=== PATIENT | female | born 1985 | race Caucasian/White ===

== ENCOUNTER → 2018-05-29 | Outpatient (CLI) | payer OTHER ==
[~2018-05-29] MED LIST: PREN-127 PO
[2018-05-29 15:35] LABS: PLATELET COUNT, AUTOMATED 214 K/uL (150-450)
== END ==
LOC: LAB 08:16
PROVIDERS: ATTEND Obstetrics & Gynecology
DX: Z34.91 Encounter for supervision of normal pregnancy, unspecified, first trimester (principal)
CPT/HCPCS: 36415; 81001; 85025; 86592; 86703; 86762; 86850; 86900; 86901; 87088; 87340

== ENCOUNTER → 2018-08-14 | Outpatient (CLI) | payer OTHER ==
[~2018-08-14] MED LIST changes: +FLU60VIA41 IM
--- NOTE | 2018-08-14 15:01 | RADIOLOGY IMAGING REPORT ---
FACILITY: [facility] [place] PATIENT NAME: Mahnaz Lassiter : 1985 MR: [id number] V: [id number] EXAM DATE: [id number] ORDERING PHYSICIAN: CHEY CORDERO TECHNOLOGIST: Location: [facility] [place] Patient: Mahnaz Lassiter : 1985 Visit/Account:[id number] Date of Sevice: 08/14/2018 [facility] OB ANATOMICAL SURVEY HISTORY: Anatomic survey COMPARISON: None. TECHNIQUE: Transabdominal imaging was performed for assessment of the fetus and maternal pelvic s tructures. Transvaginal imaging was not performed. FINDINGS: Intrauterine gestations: One. presentation: Variable. At the end of the examination the fetus was in breech presentation. heart rate: 146 bpm. Amniotic fluid volume: Normal; NILDA 17.98 cm; MVP 5.27 cm. Placenta: Anterior. Uterus: Gravid, otherwise grossly unremarkable where visualized. Maternal adnexa/ovaries: Grossly unremarkable, ovaries not visualized. Cervix: Grossly long and closed. Gestational Parameters: BPD: 4.51 cm, 82nd percentile HC: 16.63 cm, 66th percentile AC: 14.61 cm, 79th percentile FL: 2.81 cm, 34th percentile Average ultrasound age (AUA): 19 weeks/ four days Estimated age based on LMP: 18 weeks/ six days Estimated weight (EFW): 286 grams +/- 42 grams, 73rd percentile Anatomic Survey: Intracranial structures, 4-chamber heart, stomach, kidneys, urinary bladder, spine, 3-vessel cord and cord insertion are unremarkable. Two upper and two lower extremities visualized. IMPRESSION: Single viable fetus in viable presentation with an estimated gestational age by measurements of 19 we eks and four days. Estimated weight is 286 g Report Dictated By: Marcelle Bruce MD at 08/14/2018 2:53 PM Report E-Signed By: Marcelle Bruce MD at 08/14/2018 2:56 PM WSN:[email or web address]
== END ==
LOC: US 11:35
PROVIDERS: ATTEND Obstetrics & Gynecology
DX: Z34.92 Encounter for supervision of normal pregnancy, unspecified, second trimester (principal); Z3A.19 19 weeks gestation of pregnancy

== ENCOUNTER → 2018-10-16 | Outpatient (CLI) | payer OTHER ==
[~2018-10-16] MED LIST changes: +DIPH0.5D12 IM
[2018-10-16 12:05] LABS: PLATELET COUNT, AUTOMATED 178 K/uL (150-450)
== END ==
LOC: LAB 08:29
PROVIDERS: ATTEND Advanced Practice Midwife
DX: Z34.90 Encounter for supervision of normal pregnancy, unspecified, unspecified trimester (principal)
CPT/HCPCS: 36415; 82950; 85025

== ENCOUNTER → 2018-10-17 | Outpatient (CLI) | payer OTHER | LOC: LAB 07:23 | PROVIDERS: ATTEND Advanced Practice Midwife | DX: O99.810 Abnormal glucose complicating pregnancy (principal) | CPT/HCPCS: 36415; 82951; 82952 ==

== ENCOUNTER → 2018-12-11 | Outpatient (CLI) | payer OTHER ==
[~2018-12-11] MED LIST changes: +SERT-184 PO; +SERT25TA90 PO
== END ==
LOC: LAB 09:42
PROVIDERS: ATTEND Advanced Practice Midwife
DX: Z36.85 Encounter for antenatal screening for Streptococcus B (principal)
CPT/HCPCS: 87081

== ENCOUNTER 2018-12-25 12:48 | Inpatient (IN) | payer OTHER ==
[~2018-12-25] VITALS: Ht 165.1 cm; Wt 74.4 kg
[~2018-12-25 12:48] MED LIST changes: -DIPH0.5D12 IM; +DIPH0.5S2 IM
[2018-12-25 12:50] VITALS: BP 122/99; Ht 165.1 cm; Wt 74.4 kg
[2018-12-25] MEDS ORDERED: FAMOTIDINE(*) 20MG/50ML PREMIX 50 ML IVPB PRN (12:55)
[2018-12-25] MEDS ORDERED: FLUSH 10 ML SYR IVP PRN (12:55)
[2018-12-25] MEDS ORDERED: LIDOCAINE/SOD BICARB 8.4% SYR SC PRN (12:55)
[2018-12-25] MEDS ORDERED: fentaNYL CITR 100 MCG/2 ML AMP IVP PRN (12:55)
[2018-12-25] MEDS ORDERED: LIDOCAINE 1% LOCAL 300 MG/30ML INJ PRN (12:55)
[2018-12-25] MEDS ORDERED: LR(*) 1000 ML BAG 1,000 ML IV SCH (12:55)
[2018-12-25] MEDS ORDERED: METOCLOPRAMIDE 10 MG/2 ML SDV IVP PRN (12:55)
[2018-12-25] MEDS ORDERED: OXYTOCIN 30 UNIT/D5LR 500 ML 500 ML IV PRN (12:55)
[2018-12-25 13:30] LABS: PLATELET COUNT, AUTOMATED 165 K/uL (150-450)
--- NOTE | 2018-12-25 13:49 | History & Physical ---
History of Present Illness Age of Patient: 33 : 2 Para or TPAL: 1 EDC per LMP: Jan 09, 2019 Estimated Gestational Age: 37.6 Chief Complaint AR is a 33 y.o. at 37w6d wks with an Estimated Date of Delivery: 01/09/19 dated by LMP and first trimester US who presents to L&D with cramping contractions. She was seen in clinic this am and already with BBOW. Gentle membrane sweep was performed and she was told to come back to L&D if contractions began and/pr her membranes ruptured as she is GBS +. She reports onset of contractions shortly after getting home about 3 minutes apart. Reports they feel more like cramps but she wanted to get here for GBS treatment. +FM, no LOF or VB. History Patient's Blood Type: B Positive Rubella Status: Immune Group B Strep Screen: Positive Allergies: Coded Allergies: No Known Drug Allergies (Unverified , 02/28/18) Social History: no ETOH, tobacco, or illicit drug use Family History: FH: ALS (amyotrophic lateral sclerosis) MAT. GM FH: HTN (hypertension) FATHER, Age:65 FH: bipolar disorder BROTHER OR SISTER FH: diabetes mellitus PAT. GM FH: stroke MAT. FH: thyroid condition BROTHER OR SISTER Squamous cell carcinoma MOTHER, Age:63 Med Rec Home Meds Active Scripts Sertraline Hcl (SERTRALINE HCL) 50 Mg Tablet, 1 TAB PO QDAY for Anxiety, #30 TAB 3 Refills Prov:APOLONIA BENTLEY [facility] 11/20/18 Sertraline Hcl (SERTRALINE HCL) 25 Mg Tablet, 1 TAB PO QDAY for Anxiety for 7 Days, #7 TAB 0 Refills Take 25mg once a day for 7 days and then increase to 50mg everyday Prov:APOLONIA BENTLEY [facility] 11/20/18 Reported Medications Vits W-Ca,Fe,Fa(<1MG) ( VITAMINS) 1 Each Tablet, 1 EACH PO DAILY, TAB 05/29/18 Review of Systems Constitutional: No Fever Eyes: No Vision Change Cardiovascular: No Chest Pain Respiratory: No Shortness of Breath Gastrointestinal: No Nausea, No Vomiting, No Diarrhea Musculoskeletal: Pain (mild uterine cramping) Psychiatric: Anxiety (taking zoloft and stable) Exam General Exam Vital Signs Vital Signs Date Time Temp Pulse Resp B/P (MAP) Pulse Ox O2 Delivery O2 Flow Rate FiO2 12/25/18 12:50 99.0 76 18 122/99 (107) Room Air General Apperance: Alert/Awake/No Acute Distress Neuro: No Gross deficits Eyes: Normal Extraocular Movement & Vison ENT: Normal Cardiovascular: Regular Rate and Rhythm Respiratory: No Respiratory Distress Abdomen: Gravid - Non-Tender, RUQ Non-Tender : Normal Integumentary: Skin Intact without Lesions or Rash Psychological: Alert & Oriented X3, Appropriate Mood & Affect Vaginal Discharge/Fluid?: Bloody Show, Other (BBOW) Cervical Dialation: 5 (in clinic this am) Cervical Effacement (%): 70 Cervical Consistency: Soft Cervical Position: Posterior Station: -1 Presentation: Vertex Uterine Contractions(Q min): 3 UC Resting Tone: Soft Fetus Feeling Movement?: Yes Estimated Weight(grams): 3200 Heart Tones: 145 Heart Tone Variabilty: Moderate FHT Accelerations: 15X15 FHT Decelerations: None FHT Category: I Medical Decision Making Data Points Result Diagram: 12/25/18 1320 Assessment and Plan 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 at 37w6d wks with an Estimated Date of Delivery: 01/09/19 dated by LMP and first trimester US who presents to L&D with cramping contractions. She was seen in clinic this am and already /1 with BBOW. Gentle membrane sweep was performed and she was told to come back to L&D if contractions began and/pr her membranes ruptured as she is GBS +. Labor state: Early active labor, deferred cervical check on admit as she was just examined in clinic, Admit to L& D, start IV and draw labs, Start PCN BEATRIS and hopefully get second dose in in four hours. Explained POC with pt and as I will wait to recheck cervix until first dose of PCN is in. Encouraged upright positions and ambulating as well as hydrating. Will expectantly manage at this time as pt is GBS+ and plans for an unmedicated . well-being: Category I FHT: intermittent monitoring for low risk Maternal well-being: Normotensive, slightly afebrile at 99.0, will closely monitor, membranes intact with a BBOW at cervix PNL: GBS positive, Type/Rh B+, rubella immune Pain Management: Plans for unmedicated , will plan to utilize the tub for pain relief when needed Feed: Breast c/b: * GBS + * Anxiety: Started on Zoloft with good effect * Hx of GHTN in first Anticipate , re-evaluate in 2-3 hours or prn APOLONIA BENTLEY CNM Dec 25, 2018 13:49
[2018-12-25] MEDS ORDERED: PENICILLIN G 5 MILLUN VIAL 5 MIU in NS(*) 0.9% 100 ML MINI-BAG 100 ML IVPB ONE (14:00)
--- NOTE | 2018-12-25 17:51 | Labor Progress Note ---
Labor Subjective Progress Notes Subjective Pt reports feeling her contraction more intensely after AROM. She denies LOPEZ, vision changes, or RUQ pain. She reports good movement. at bedside and very supportive. Feeling Movement?: Yes Vaginal Discharge/Fluid: Bloody Show, Clear Fluid, Mucous, Moderate Amount Labor Pain: Moderate Neurological: No Headache Eyes: No Visual Disturbances Labor Objective Vital Signs Vital Signs Date Time Temp Pulse Resp B/P (MAP) Pulse Ox O2 Delivery O2 Flow Rate FiO2 12/25/18 12:50 99.0 76 18 122/99 (107) Room Air Vaginal Discharge/Fluid?: Bloody Show, Clear Fluid, Mucous, Moderate Amount Cervical Dialation: 6 Cervical Effacement (%): 80 Cervical Consistency: Soft Cervical Position: Mid Station: -1 Presentation: Vertex Uterine Contractions(Q min): 4 Uterine Contraction Strength: Moderate UC Resting Tone: Soft Fetus Estimated Weight(grams): 3200 Heart Tones: 145 Heart Tone Variabilty: Moderate FHT Accelerations: Present, 10X10 FHT Decelerations: None FHT Category: I General Exam General Appearance: Alert/Awake/No Acute Distress ENT: Normal Neck: No Masses Cardiovascular: Normal Rhythm & Peripheral Pulses Respiratory: No Respiratory Distress, Clear to Auscultation Abdomen: Soft, Non-Tender, Non-Distended Musculoskeletal: No Weakness/Pain Extremities: No Cyanosis,Clubbing or Edema Integumentary: Skin Intact without Lesions or Rash Psychological: Alert & Oriented X3, Appropriate Mood & Affect Other Result Diagram: 12/25/18 1320 Assessment and Plan Problems: (1) Uterine contractions Onset Date: ~ 12/25/2018 Status: Acute Assessment & Plan: SHANIA is a 33 y.o. at 37w6d wks with an Estimated Date of Delivery: 01/09/19 dated by LMP and first trimester US who presents to L&D with cramping contractions. She was seen in clinic this am and already with BBOW. Gentle membrane sweep was performed and she was told to come back to L&D if contractions began and/or her membranes ruptured as she is GBS +. Labor state: Active labor, received 2 doses of PCN so adequately treated for GBS. Small progress since 1330 with cervical dilation so informed pt of choices to progress labor. Reviewed R/B/A of AROM and expectant management to pt and . Pt desires AROM. Encourage upright positions to facilitate descent. well-being: Category I FHT: intermittent monitoring for low risk Maternal well-being: Normotensive, but closely monitor for mild range BP, will plan to send P:R if becoming mild range, afebrile AROM @ 17:14 for moderate amount of clear blood tinged fluid with mucus PNL: GBS positive, Type/Rh B+, rubella immune Pain Management: Plans for unmedicated , will plan to utilize the tub for pain relief when needed Feed: Breast c/b: * GBS +: adequate treatment in labor * Anxiety: Started on Zoloft with good effect * Hx of GHTN with first Anticipate , re-evaluate in 2-3 hours or prn APOLONIA BENTLEY CNM Dec 25, 2018 17:51
[2018-12-25] MEDS ORDERED: PENICILLIN G 2.5 MILLUN/100 ML 100 ML IVPB SCH (18:00)
[2018-12-25] MEDS ORDERED: ONDANSETRON 4 MG/2 ML VIAL IVP PRN (18:30)
--- NOTE | 2018-12-25 20:00 | OB Delivery Note ---
Delivery Note Vaginal Delivery Type: Spont. Vaginal Delivery Delivery Date: Dec 25, 2018 Delivery Time: 19:06 Estimated Gestational Age(wks): 37.6 Delivery Anesthesia: Other (none) Sex: Male Apgars: 1 Minute, 5 Minute Repair Needed: Laceration, Perineal, 2nd Degree Estimated Blood Loss: 300 Delivery Complications: Laceration Notes: AR is a 33 year old G2 now P2 at @ 37 6/7 by LMP and first trimester US with an ARNEL of 01/09/19 with OOC on 12/25/18 at 1248 after a morning clinic visit when she was found to be 5//70/-2. Pt was admitted to the family care unit on 12/25/18 @ 12:48 in early labor for GBS treatment before labor. Cervical exam at clinic at 0930 am was 5/70/-2 and was not rechecked at admit as to provide time for adequate GBS treatment. She had AROM on 12/25/18 at 1714 for moderate clear blood tinged fluid. Pt was GBS positive and received adequate treatment. FHR was CAT I primarily throughout first stage. Pt utilized controlled breathing and hydrotherapy primarily for pain management. Pt was completely dilated on 12/25/18 at 1900 and pt began spontaneously pushing at that time. At 1906 pt had a NSVB of live male APGARS 8/9 weighing 7lbs 12oz. The head delivered spontaneously in the OA position and restituted STEVEN with no nuchal cord. The anterior shoulder was delivered a traumatically and the posterior shoulder followed. Body delivered easily. Face was wiped and then placed on the maternal abdomen. The was dried and stimulated and noted to have a spontaneous cry and spontaneous movement of all 4 extremities. Cord was clamped X 2 by CNM after 3 minutes and cut by patient's spouse. Mother was in SF position. At 1913 the placenta and membranes delivered spontaneous and intact with a 3 vessel cord after gentle downward traction and maternal push. 30 units of Pitocin was placed in 500cc IV to firm the uterus and started immediately after placenta delivery. Upon inspection of the perineum a second degree midline laceration was noted and repaired using a 3.0 Vicryl under 1% lidocaine. Patient tolerated the procedure well. Hemostasis observed.A right periurethral abrasion was also noted to be hemostatic and no repair was necessary. EBL 300 with fundus firm with minimal bleeding. Mom and baby were left in stable condition. imitated. "I personally examined the patient and there are no unintended foreign objects in the vagina, as well as all laps, sponges and needle counts were correct." Gabriela Allen CNM was present throughout the entire delivery with Dr. Jin Golden as back up OB. Athlete Marketing Agent in Attendence: GABRIELA Rodriguez CNM Dec 25, 2018 20:00
[2018-12-25] MEDS ORDERED: MAGNESIUM HYDROXIDE* 30ML UDCP PO PRN (20:05)
[2018-12-25] MEDS ORDERED: LANOLIN OINT 7 GM TUBE TP PRN (20:05)
[2018-12-25] MEDS ORDERED: HYDROCORTISONE 2.5% CR 30GM TB PR PRN (20:05)
[2018-12-25] MEDS ORDERED: APAP/HYDROCODONE 325/5 TAB PO PRN (20:05)
[2018-12-25] MEDS ORDERED: GLYCERIN/WITCH HAZEL LEAF 1 PK TP PRN (20:05)
[2018-12-25] MEDS ORDERED: BENZOCAINE 20% 60 ML BTL TP PRN (20:05)
[2018-12-25] MEDS: DOCUSATE CALCIUM 240 MG CAP PO SCH (21:00)
[2018-12-25] MEDS ORDERED: LIDOCAINE 1% LOCAL 300 MG/30ML 30 ML ONE (21:52)
[2018-12-25 23:05] VITALS: BP 106/57
[2018-12-26] MEDS ORDERED: IBUPROFEN 800 MG TAB PO SCH (01:00)
[2018-12-26 02:31] VITALS: BP 107/61
[2018-12-26] MEDS: IBUPROFEN 800 MG TAB PO SCH ×3 (04:07→20:19)
[2018-12-26 07:05] VITALS: BP 114/63
[2018-12-26] MEDS: DOCUSATE CALCIUM 240 MG CAP PO SCH ×2 (09:00→20:19)
[2018-12-26] MEDS ORDERED: PENICILLIN G 2.5 MILLUN/100 ML 100 ML IVPB SCH (10:00)
--- NOTE | 2018-12-26 11:57 | OB/GYN Progress Note ---
OB Subjective Progress Notes Subjective Pt is PP day #1 s/p an uncomplicated last evening of a male infant. She sustained a second degree midline perineal laceration that was repaired. Today she has no physical complaints other than some tail bone pain, which she reports she also had from her last . She is tolerating with motrin. She is voiding well without pain. has not been going that well, so she is going to work with a LC to help get a good latch. Baby has been very sleepy today. She got very little sleep last night, but will try and get some naps in. GI: POS Flatus; NEG Nausea, NEG Vomiting, NEG Bowel Movement : Voiding Well, Vaginal Bleeding, Scant Pain: Mild (tail bone, but no perineal pain. Very mild cramping tolerating with mortin), Tolerating PO Pain Meds Neurological: No Headache Eyes: No Visual Disturbances OB Objective Physical Exam Vital Signs Date Time Temp Pulse Resp B/P (MAP) Pulse Ox O2 Delivery O2 Flow Rate FiO2 12/26/18 07:05 97.2 53 16 114/63 (80) 12/26/18 02:31 92 12/25/18 12:50 Room Air Intake and Output 12/26/18 07:00 Intake Total 1200 ml Output Total 520 ml Balance 680 ml Intake IV Total 1200 ml Output Urine Total 470 ml Other 50 ml # Voids 2 General Appearance: Alert/Awake/No Acute Distress Neurological: No Gross deficits Eyes: Normal Extraocular Movement & Vison ENT: Normal Neck: No Masses Cardiovascular: Normal Rhythm & Peripheral Pulses Respiratory: No Respiratory Distress, Clear to Auscultation Abdomen: Soft, Non-Tender, Non-Distended, Bowel Sounds Present, Fundus Firm Incision: Other (laceration well approximated and healing well.) : Normal Musculoskeletal: No Weakness/Pain Extremities: No Cyanosis,Clubbing or Edema Integumentary: Skin Intact without Lesions or Rash Psychological: Alert & Oriented X3, Appropriate Mood & Affect Result Diagram: 12/26/18 0653 Assessment and Plan Problems: (1) Uterine contractions Onset Date: ~ 12/25/2018 Status: Resolved (2) (normal spontaneous vaginal delivery) Status: Resolved (3) Second degree laceration of perineum, delivered, current hospitalization Status: Acute Assessment & Plan: Healing well with good approximation: Encouraged use of karen bottle when urinating and dermaplast PRN. Sitx bathes PRN. Reviewed s/s of infection and healing timeframe. (4) care and examination Onset Date: ~ 12/25/2018 Status: Acute Assessment & Plan: PP day #1: Normotensive and afebrile. Pt is having difficulty with and because 24 hour disha is so late, will plan to stay until tomorrow for LC help. Baby is doing well, just very sleepy. Has concerns overnight as baby was tremoring. Pt is on Zoloft 50mg, but also LGA baby for GA. BS was borderline and they will continue to monitor. Plan for baby and mother to be dc'd tomorrow after circumcision. APOLONIA BENTLEY CNM Dec 26, 2018 11:57
[2018-12-26 12:00] VITALS: BP 119/74
[2018-12-26] MEDS: SERTRALINE HCL 50 MG TAB PO SCH (12:00)
[2018-12-26 16:21] VITALS: BP 119/73
[2018-12-26 20:18] VITALS: BP 126/81
[2018-12-26 23:59] VITALS: BP_SYST 128; BP_SYST 141; BP_DIAS 77; BP_DIAS 79
[2018-12-27 03:48] VITALS: BP 123/78
[2018-12-27] MEDS: IBUPROFEN 800 MG TAB PO SCH (03:48)
[2018-12-27 07:20] VITALS: BP 118/78
[2018-12-27] MEDS: DOCUSATE CALCIUM 240 MG CAP PO SCH (08:46)
[2018-12-27] MEDS: SERTRALINE HCL 50 MG TAB PO SCH (08:46)
--- NOTE | 2018-12-27 08:47 | NUR ---
pt refused zoloft, preferring to take own from home
--- NOTE | 2018-12-27 09:11 | OB/GYN Discharge Summary ---
Discharge Summary Reason for Hosp/Final Diag: (1) Uterine contractions Onset Date: ~ 12/25/2018 Status: Resolved (2) (normal spontaneous vaginal delivery) Status: Resolved (3) Second degree laceration of perineum, delivered, current hospitalization Status: Acute Hospital Course & Plan: Healing well with good approximation: Encouraged use of karen bottle when urinating and dermaplast PRN. Sitx bathes PRN. Reviewed s/s of infection and healing timeframe. (4) care and examination Onset Date: ~ 12/25/2018 Status: Acute Hospital Course & Plan: Admission Diagnoses: IUP at 37w6d, Labor state early active labor Reason for Hospitalization: Labor and of male infant Procedures Performed: second degree perineal laceration repair Delivery Type: uncomplicated Hospital Course: Pt was admitted to the family care unit on 12/25/18 @ 12:48 in early labor for GBS treatment before labor. Cervical exam at clinic at 0930 am was 5/70/-2 and was not rechecked at admit as to provide time for adequate GBS treatment. She had AROM on 12/25/18 at 1714 for moderate clear blood tinged fluid. Pt was GBS positive and received adequate treatment. FHR was CAT I primarily throughout first stage. Pt utilized controlled breathing and hydrotherapy primarily for pain management. She has an uncomplicated of a male . Delivery Information: see delivery note Estimated blood loss: 300 Episiotomy: none Laceration: second degree perineal repaired and right periurethral abrasion Pain Management: Unmedicated using hydrotherapy Subjective: Pt is feeling very well today and ready to go home. at bedside and very supportive Abdominal pain: Very mild cramping with BF Perineal pain: Mild, tolerating with motrin and dermaplast Vaginal bleeding: Moderate red lochia, no clots Flatus: yes UTI symptoms: none Feeding modality: , but also formula supplement because of low blood sugars Problems with breast feeding: reports a good latch without pain Bowel movement: no Ambulating: yes Preeclampsia symptoms: denies Nausea/vomiting: denies experience: Very happy with their experience control: unsure at this time, but will talk at 2 week PP Rhogam given? N/A Rubella vaccine given? N/A Influenza vaccine given? Given antepartum Tdap given? Given Antepartum Exam Vitals: Normotensive and afebrile Breasts: Soft, non tender, nipple everted and + colostrum Abdomen: FF, U< 1 Perineum: healing well approximated with swelling or redness Lochia: moderate, not clots Extremities: BLE without redness and pain, -homans sign Disposition: Patient discharged to home in medically stable condition. Ibuprofen script sent to [facility] No Known Allergies Follow-up Appointment: 2 & 6 weeks with Gabriela Allen CNM Activity/Restrictions: Pelvic rest; nothing in vagina for six weeks. Return Precautions: Patient instructed to call the clinic or return to hospital for fever > 101 degree F; chills; severe nausea or vomiting; inability to tolerate anything by mouth for > 24 hours; increasingly severe abdominal/pelvic pain; foul smelling vaginal discharge; vaginal bleeding > 1 pad per hour for > 2 hours; separation, drainage, or redness of incision or laceration site. Reviewed depression and pre-eclampsia s/s and when to seek care. [place] Vital Signs Vital Signs Date Time Temp Pulse Resp B/P (MAP) Pulse Ox O2 Delivery O2 Flow Rate FiO2 12/27/18 03:48 98.6 63 16 123/78 (93) Room Air 12/26/18 23:59 95 Weight (Pounds): 164 Result Diagram: 12/26/18 0653 Condition: Improved Discharge: Home Home Meds Active Scripts Ibuprofen (IBUPROFEN) 800 Mg Tablet, 800 MG PO 0400,1200,1999, #20 TAB 0 Refills Prov:GABRIELA ALLEN CNM 12/27/18 Sertraline Hcl (SERTRALINE HCL) 50 Mg Tablet, 1 TAB PO QDAY for Anxiety, #30 TAB 3 Refills Prov:GABRIELA ALLEN CNM 11/20/18 Sertraline Hcl (SERTRALINE HCL) 25 Mg Tablet, 1 TAB PO QDAY for Anxiety for 7 Days, #7 TAB 0 Refills Take 25mg once a day for 7 days and then increase to 50mg everyday Prov:GABRIELA ALLEN CNM 11/20/18 Reported Medications Vits W-Ca,Fe,Fa(<1MG) ( VITAMINS) 1 Each Tablet, 1 EACH PO DAILY, TAB 05/29/18 Follow up Referrals: CARE NURSE RN @ [facility] with GABRIELA ALLEN CNM Follow up in: 2 wks PO Discharge Diet: As Tolerates, Resume Prior Admit Diet Discharge Activity: As Tolerates, Pelvic Rest GABRIELA ALLEN CNM Dec 27, 2018 09:11
[2018-12-27] MEDS ORDERED: IBUP800T37 PO (10:05)
== END 2018-12-27 12:00 | disposition home or self-care (01) | DRG 807 ==
LOC: OB 12:48
PROVIDERS: ADMIT Student in an Organized Health Care Education/Training Program; ATTEND Student in an Organized Health Care Education/Training Program
PROC: 10E0XZZ Delivery of Products of Conception, External Approach (ICD-10-PCS; principal; 2018-12-25)
PROC: 10907ZC Drainage of Amniotic Fluid, Therapeutic from Products of Conception, Via Natural or Artificial Opening (ICD-10-PCS; 2018-12-25)
PROC: 0HQ9XZZ Repair Perineum Skin, External Approach (ICD-10-PCS; 2018-12-25)
DX: O99.824 Streptococcus B carrier state complicating childbirth (principal); Z37.0 Single live birth; O99.344 Other mental disorders complicating childbirth; F41.9 Anxiety disorder, unspecified; O70.1 Second degree perineal laceration during delivery; Z3A.37 37 weeks gestation of pregnancy
CPT/HCPCS: 36415; 85025; 85027; 86703; 86850; 86900; 86901; J2001; J2405; J2540; J2590; J7120